=== PATIENT | female | born 1960 | race African-American/Black ===

== ENCOUNTER → 2016-10-02 | Outpatient (CLI) | payer BC ==
--- NOTE | ~2016-10-02 | MY11 ---
[facility] A Service of [facility] RADIOLOGY TEXT RESULTS PATIENT: DENNY COOK LOCATION: [facility] : 60 UNIT #: [id number] AGE: [address]: YECENIA GRAHAM MD SEX: F ORDER DR: [id number] [facility]. [place], [place] [address] [id number] O MR#: [id number] Acc #: [id number] NAME: DENNY COOK : 1960 SEX: F STUDY DATE/TIME: 10/02/2016 8:48 UNIT: [facility] ROOM: STUDY DESCRIPTION: MY Mammogram Screening Dig Nickolas Attending Physician: Yecenia Graham M.D. Referring Physician: Yecenia Graham M.D. Ordering Physician: Yecenia Graham M.D. Primary Care Physician: Yecenia Graham M.D. MEDICAL IMAGING REPORT This report is preliminary unless electronic signature is present EXAM Digital screening mammogram 10/02/2016. HISTORY 56-year-old woman. No risk elevation. Prior cyst aspirations. Annual screen. COMPARISON [facility] 04/20/2013. FINDINGS Digital imaging of each breast was completed utilizing a two-view examination of each breast in craniocaudal and mediolateral-oblique projections. Review and interpretation of digital mammograms include a second review in conjunction with FDA-approved CAD device. There is a normal parenchymal presentation bilaterally consistent with the patient's age. There are no breast masses imaged and no parenchymal asymmetry is visualized. There are no suspicious microcalcifications and I see no focal architectural disturbance. IMPRESSION Negative screening digital mammogram. One-year followup recommended. Patients over the age of 40 are entered into a reminder system with target due date for the next mammogram. A result letter will also be sent to the patient. BIRADS: 1 Negative Dictated by... Dillan Kang M.D. THIS IS AN ELECTRONICALLY VERIFIED REPORT [facility] A Service of [facility] RADIOLOGY TEXT RESULTS PATIENT: DENNY COOK LOCATION: [facility] : 60 UNIT #: [id number] AGE: [address]: YECENIA GRAHAM MD SEX: F ORDER DR: Dillan Kang M.D. at 10/02/2016 12:27 PM Jayla TD: 10/02/2016 12:05 JOB #: [id number] MEDICAL IMAGING REPORT Page 1 of 1 COPY
== END | disposition home or self-care (01) ==
LOC: CWCC 08:27
DX: Z12.31 Encounter for screening mammogram for malignant neoplasm of breast (principal); Z98.890 Other specified postprocedural states
CPT/HCPCS: G0202

== ENCOUNTER → 2016-12-16 | Outpatient (CLI) | payer BC ==
[2016-12-16 09:48] LABS: ALBUMIN SERUM 4.4 g/dL (3.5-5.0); BUN/CREATININE RATIO 14.28; CALCIUM SERUM 9.4 mg/dL (8.4-10.2); CREATININE SERUM 0.7 mg/dL (0.6-1.4); GLOM FILT RATE Estimated 112.3 mL/min (>60); PROTEIN TOTAL SERUM 7.1 g/dL (6.0-8.3)
[2016-12-16 17:11] LABS: THYROID STIMULATING HORMONE 0.73 uIU/ml (0.34-5.60)
[2016-12-16 17:18] LABS: FREE THYROXIN (T4) 0.8 ng/dL (0.58-1.64)
== END | disposition home or self-care (01) ==
LOC: CLAB 08:23
PROVIDERS: Internal Medicine
DX: E11.65 Type 2 diabetes mellitus with hyperglycemia (principal)
CPT/HCPCS: 36415; 80048; 80053; 80061; 83036; 84439; 84443

== ENCOUNTER → 2016-12-16 | Outpatient (CLI) | payer BC ==
--- NOTE | ~2016-12-16 | EKG ---
PATIENT: DENNY COOK UNIT #: [id number] Ventricular Rate: 64 BPM Atrial Rate: 64 BPM P-R Interval: 160 ms QRS Duration: 98 ms Q-T Interval: 430 ms QTC Calculation(Bezet): 443 ms P [place]: 61 degrees Calculated R [place]: -12 degrees Calculated T [place]: 14 degrees Diagnosis Line: Normal sinus rhythm Diagnosis Line: Normal ECG Diagnosis Line: No previous ECGs available Diagnosis Line: Confirmed by MARI MORENO MD ([id number]) on Diagnosis Line: 12/18/2016 3:38:45 PM INTERPRETING MD: [email or web address]
[2016-12-16 09:15] LABS: HEMATOCRIT 42.4 % (35.0-45.0); HEMOGLOBIN 12.9 gm/dL (12.0-16.0); MEAN CELL VOLUME 70.3 FL (83-96); MEAN CORPUSCULAR HEMOGLOBIN 21.3 PG (28-34); MEAN CORPUSCULAR HGB CONC 30.3 g/dL (30-36); MEAN PLATELET VOLUME 8.2 FL (6.5-11.5); RED BLOOD COUNT 6.04 X10e (3.90-5.30); RED CELL DISTRIBUTION WIDTH 14.6 % (11.0-15.5); WHITE BLOOD COUNT 5.3 X10e3 (4.0-10.5)
[2016-12-16 09:48] LABS: CALCIUM SERUM 9.4 mg/dL (8.4-10.2)
[2016-12-16 09:54] LABS: BUN/CREATININE RATIO 14.28; CREATININE SERUM 0.7 mg/dL (0.6-1.4); GLOM FILT RATE Estimated 112.3 mL/min (>60)
== END | disposition home or self-care (01) ==
LOC: CLAB 08:20
PROVIDERS: Podiatrist
DX: M20.42 Other hammer toe(s) (acquired), left foot (principal)
CPT/HCPCS: 80048; 85027; 93005